=== PATIENT | female | born 1935 | race Caucasian/White ===

== ENCOUNTER 2017-03-14 05:35 | Day surgery (SDC) | payer MEDICARE, OTHER ==
[~2017-03-14 05:35] MED LIST: ASAB PO; CARDCD240 PO; CELEXA20 PO; ENDOCET1 TAB PO; ESTRACE0.5 MG PO; LORTAB 5 PO; MAX25 PO; NAP500 PO; NICODERM C14 MG/24 H TOP; NORV5 PO; PREM.3B PO; PREV15 PO; PRILO PO; TRANXENE 7.5 M7.5 MG OR; TYLENOL PM PO; ULTRAM50 PO; VITAMIN D1000 UNI1 PO; ZOCOR40 PO; [UNRECOGNIZED DRUG - OTHER]
== END 2017-03-14 23:59 | disposition home or self-care (01) ==
LOC: SDC 05:35
PROVIDERS: Orthopaedic Surgery
PROC: 3E0R33Z Introduction of Anti-inflammatory into Spinal Canal, Percutaneous Approach (ICD-10-PCS; 2017-03-14)
PROC: 3E0R3BZ Introduction of Anesthetic Agent into Spinal Canal, Percutaneous Approach (ICD-10-PCS; principal; 2017-03-14 08:00)
DX: M54.16 Radiculopathy, lumbar region (principal); J44.9 Chronic obstructive pulmonary disease, unspecified; Z88.0 Allergy status to penicillin; Z79.82 Long term (current) use of aspirin; Z79.899 Other long term (current) drug therapy; Z98.41 Cataract extraction status, right eye; Z98.42 Cataract extraction status, left eye; Z96.653 Presence of artificial knee joint, bilateral; Z90.710 Acquired absence of both cervix and uterus; Z90.89 Acquired absence of other organs; Z98.890 Other specified postprocedural states
CPT/HCPCS: J2250; J3010; Q9967